=== PATIENT | female | born 1945 | race Caucasian/White ===

== ENCOUNTER → 2016-12-09 | Outpatient (CLI) | payer OTHER ==
[~2016-12-09] MED LIST: BENICAR HCT 20-1 TA1 PO; GABAPENTIN300 M1 PO; KETOPROFEN PO; LEXAPRO PO; LIPITOR PO; PREMARIN PO; PROTONIX PO; ROBAXIN PO; SECTRAL PO; VICODIN 5/1 TAB 5/50 PO; VOLTAREN75 MG PO
--- NOTE | ~2016-12-09 | MY11 ---
[facility] A Service of [facility] RADIOLOGY TEXT RESULTS PATIENT: JONO WILLIS LOCATION: [facility] : 49 UNIT #: [id number] AGE: [address]: Lucretia Jennings MD SEX: F ORDER DR: [id number] [address] [address] [id number] MR#: [id number] Acc #: [id number] NAME: JONO WILLIS : 1945 SEX: F STUDY DATE/TIME: 12/09/2016 13:29 UNIT: [facility] ROOM: STUDY DESCRIPTION: MY Mammogram Screening Dig Clark Attending Physician: Lucretia Jennings M.D. Referring Physician: Lucretia Jennings M.D. Ordering Physician: Lucretia Jennings M.D. Primary Care Physician: Lucretia Jennings M.D. MEDICAL IMAGING REPORT This report is preliminary unless electronic signature is present. EXAM Digital screening mammogram 12/09/2016 HISTORY 71-year-old woman, no risk elevation. Annual screen. COMPARISON STUDIES Comparison mammograms date to 10/17/2006 with most recent 10/30/2015 FINDINGS Digital imaging of each breast was completed utilizing a two-view examination of each breast in craniocaudal and mediolateral-oblique projections. Review and interpretation of digital mammograms include a second review in conjunction with FDA-approved CAD device. There is a normal parenchymal presentation bilaterally consistent with the patient's age. There are no breast masses imaged and no parenchymal asymmetry is visualized. There are no suspicious microcalcifications and I see no focal architectural disturbance. IMPRESSION Negative screening digital mammogram. One-year followup recommended. Patients over the age of 40 are entered into a reminder system with target due date for the next mammogram. A result letter will also be sent to the patient. BIRADS: 1 Negative Dictated by... Dariusz Elam M.D. THIS IS AN ELECTRONICALLY VERIFIED REPORT [facility] A Service of [facility] & [facility] RADIOLOGY TEXT RESULTS PATIENT: JONO WILLIS LOCATION: [facility] : 49 UNIT #: [id number] AGE: [address]: Lucretia Jennings MD SEX: F ORDER DR: Dariusz Elam M.D. at 12/12/2016 8:09 AM Sherie TD: 12/09/2016 16:19 JOB #: [id number] MEDICAL IMAGING REPORT Page 1 of 1
== END | disposition home or self-care (01) ==
LOC: SMAM 12:53
DX: Z12.31 Encounter for screening mammogram for malignant neoplasm of breast (principal)
CPT/HCPCS: G0202

== ENCOUNTER → 2017-03-21 | Outpatient (CLI) | payer OTHER ==
--- NOTE | ~2017-03-21 | US77 ---
[facility] A Service of [facility] & [facility] RADIOLOGY TEXT RESULTS PATIENT: JONO WILLIS LOCATION: [facility] : 49 UNIT #: [id number] AGE: [address]: Joselo Lockwood MD SEX: F ORDER DR: [id number] [address] [address] [id number] O MR#: [id number] Acc #: [id number] NAME: JONO WILLIS : 1945 SEX: F STUDY DATE/TIME: 03/21/2017 12:56 UNIT: [facility] ROOM: STUDY DESCRIPTION: US Kidney Bilateral Complete Attending Physician: Joselo Lockwood M.D. Referring Physician: Joselo Lockwood M.D. Ordering Physician: Joselo Lockwood M.D. Primary Care Physician: Lucretia Jennings M.D. MEDICAL IMAGING REPORT This report is preliminary unless electronic signature is present. EXAM Renal ultrasound, 03/21/2017 HISTORY Chronic kidney disease stage 3, moderate. Followup. FINDINGS Right kidney measured 8.6 cm while the left kidney measured 9.3 cm in longitudinal dimensions. There is no evidence of hydronephrosis or nephrolithiasis. No cystic or solid mass lesions were seen on either kidney. There is normal renal cortical echogenicity. Images of the bladder are normal. IMPRESSION 1. Negative renal ultrasound. 2. Images of the bladder are normal. Dictated by... Mason Gonzalez M.D. THIS IS AN ELECTRONICALLY VERIFIED REPORT Mason Gonzalez M.D. at 03/22/2017 2:21 PM CHANEL/marques TD: 03/22/2017 04:29 JOB #: [id number] MEDICAL IMAGING REPORT Page 1 of 1
[2017-03-21 12:44] LABS: BASOPHIL# 0.1 X10e3 (0-0.3); BASOPHIL% 1.2 % (0-2.5); EOSINOPHIL# 0.2 X10e3 (0-0.7); EOSINOPHIL% 3.1 % (0.0-7.0); HEMATOCRIT 38.7 % (35.0-45.0); HEMOGLOBIN 12.7 gm/dL (12.0-16.0); LYMPHOCYTE# 1.7 X10e3 (1.0-3.5); LYMPHOCYTE% 33.1 % (17.0-45.0); MEAN CELL VOLUME 90.3 FL (83-96); MEAN CORPUSCULAR HEMOGLOBIN 29.8 PG (28-34); MEAN PLATELET VOLUME 9.3 FL (6.5-11.5); MONOCYTE# 0.7 X10e3 (0-1.0); MONOCYTE% 14.1 % (3.0-12.0); NEUTROPHIL# 2.5 X10e3 (1.5-7.1); NEUTROPHIL% 48.5 % (40-75); PLATELET COUNT 138 X10e3 (140-420); RED BLOOD COUNT 4.28 X10e (3.90-5.30); RED CELL DISTRIBUTION WIDTH 13.7 % (11.0-15.5); WHITE BLOOD COUNT 5.2 X10e3 (4.0-10.5)
[2017-03-21 12:45] LABS: DIFF IND NO
[2017-03-21 12:56] LABS: URINE APPEARANCE CLEAR; URINE BILIRUBIN NEG (NEG); URINE BLOOD NEG (NEG); URINE COLOR YELLOW; URINE GLUCOSE NEG (NORM); URINE KETONE NEG (NEG); URINE LEUKOCYTE ESTERASE NEG (NEG); URINE NITRATE NEG (NEG); URINE PH 6.5 (5-8); URINE PROTEIN NEG (NEG); URINE SPECIFIC GRAVITY <=1.005 (1.003-1.035); URINE UROBILINOGEN 0.2 MG/DL (NORM)
[2017-03-21 13:04] LABS: BUN/CREATININE RATIO 20.9; CALCIUM SERUM 9.3 mg/dL (8.4-10.2); CREATININE SERUM 1.1 mg/dL (0.6-1.4); GLOM FILT RATE Estimated 51.2 mL/min (>60); MICRO INDICATED? NO; POTASSIUM 4.6 mmol/L (3.5-5.1)
[2017-03-21 14:34] LABS: SODIUM URINE RANDOM 17 mmol/L
[2017-03-21 14:49] LABS: OSMOLALITY,URINE 224 mOsmo/kg (250-900)
== END | disposition home or self-care (01) ==
LOC: SGUS 12:17
PROVIDERS: Internal Medicine Nephrology
DX: N18.3 Chronic kidney disease, stage 3 (moderate) (principal); E87.1 Hypo-osmolality and hyponatremia
CPT/HCPCS: 36415; 76775; 80048; 81003; 83935; 84300; 85025